=== PATIENT | male | born 1970 | race Two or more races ===

== ENCOUNTER 2016-09-27 20:48 | Emergency (ER) | payer OTHER ==
[~2016-09-27] VITALS: Ht 160 cm; Wt 79.4 kg
[~2016-09-27 20:48] MED LIST: GLYB1.257 PO; METF-312 PO; OMEP20CA5 OR
[2016-09-28 04:12] VITALS: BP 152/99
[2016-09-28] MEDS ORDERED: IBUPROFEN 800 MG TAB PO ONE (04:15)
[2016-09-28] MEDS ORDERED: cefTRIAXone W LIDOCAINE 1 GM IM IM ONE (04:15)
[2016-09-28] MEDS ORDERED: cefTRIAXone SOD 1,000 MG VL ONE (04:49)
== END 2016-09-28 04:51 | disposition home or self-care (01) ==
LOC: ER 20:56
DX: N45.3 Epididymo-orchitis (principal); J45.909 Unspecified asthma, uncomplicated; E11.9 Type 2 diabetes mellitus without complications; E78.5 Hyperlipidemia, unspecified
CPT/HCPCS: 76870; 96372; 99284; J0696

== ENCOUNTER 2016-10-06 13:01 | Emergency (ER) | payer OTHER ==
[~2016-10-06] VITALS: Ht 160 cm; Wt 81.6 kg
[2016-10-06] MEDS ORDERED: HYDROcodone-ACET 10/325MG TAB PO ONE (17:30)
[2016-10-06 18:22] LABS: Basophils # (auto) 0 uL; Basophils % (auto) 0.2 % (0.0-2.0); DEFINITIVE VIEW TRANSMISSION; Eosinophils # (auto) 1.4 uL; Hematocrit 46.8 % (41.0-53.0); Hemoglobin 15.6 g/dL (13.5-17.5); Lymphocytes # (auto) 4.9 uL; Lymphocytes % (auto) 38.1 % (10.0-50.0); Mean Corpuscular Hemoglobin 29.9 pg (28.0-32.0); Mean Corpuscular Hgb Conc. 33.3 g/dL (32.0-36.0); Mean Corpuscular Volume 89.6 fL (80.0-100.0); Mean Platelet Volume 6.5 fL (7.4-10.4); Monocytes # (auto) 0.9 uL; Monocytes % (auto) 6.7 % (0.0-12.0); Neutrophils # (auto) 5.6 uL; Platelet Count (auto) 485 10^3/uL (140-450); Red Cell Distribution Width 12.5 % (11.6-16.0); White Blood Cell 12.8 10^3/uL (4.4-10.8)
[2016-10-06 18:34] LABS: Albumin 3.9 g/dL (3.4-5.0); BUN/Creatinine Ratio 16.9; Bilirubin, Total 0.7 mg/dL (0.2-1.0); Calcium 9.1 mg/dL (8.5-10.1); Potassium 3.9 mmol/L (3.5-5.1); Total Protein 7.2 g/dL (6.4-8.2)
[2016-10-06 18:45] LABS: Urine RBC None Seen /hpf (0 - 3)
[2016-10-06 19:05] LABS: Urine Bilirubin Negative (Negative); Urine Blood Negative /uL (Negative); Urine Color Yellow (Yellow); Urine Ketone Negative (Negative); Urine Mucus FEW (None Seen); Urine Nitrite Negative (Negative); Urine Urobilinogen Normal (Negative); Urine pH 5.5 (5.0-8.0)
[2016-10-06 19:16] LABS: Urine Glucose 1+ mg/dL (Normal)
[2016-10-06 20:26] VITALS: BP 147/96
== END 2016-10-06 20:27 | disposition home or self-care (01) ==
LOC: ER 13:03
DX: N43.3 Hydrocele, unspecified (principal); J45.909 Unspecified asthma, uncomplicated; E11.9 Type 2 diabetes mellitus without complications; E78.5 Hyperlipidemia, unspecified; Z87.11 Personal history of peptic ulcer disease; Z90.89 Acquired absence of other organs
CPT/HCPCS: 36415; 76870; 80053; 81001; 85025; 85049

== ENCOUNTER 2017-07-27 09:36 | Emergency (ER) | payer OTHER, MEDICAID ==
[~2017-07-27] VITALS: Ht 160 cm; Wt 79.4 kg
[~2017-07-27 09:36] MED LIST changes: -METF-312 PO; +METF-370 PO; -OMEP20CA5 OR; +OMEP20CA74 OR
[2017-07-27 09:50] VITALS: BP 151/97
== END 2017-07-27 11:34 | disposition home or self-care (01) ==
LOC: ER 09:36
DX: S09.90XA Unspecified injury of head, initial encounter (principal); J45.909 Unspecified asthma, uncomplicated; E11.9 Type 2 diabetes mellitus without complications; E78.5 Hyperlipidemia, unspecified; I10 Essential (primary) hypertension; G89.29 Other chronic pain; M54.2 Cervicalgia; Z79.899 Other long term (current) drug therapy; Z90.49 Acquired absence of other specified parts of digestive tract; W01.0XXA Fall on same level from slipping, tripping and stumbling without subsequent striking against object, initial encounter; Y93.01 Activity, walking, marching and hiking; Y99.8 Other external cause status; Y92.89 Other specified places as the place of occurrence of the external cause
CPT/HCPCS: 70450

== ENCOUNTER 2017-08-30 13:09 | Emergency (ER) | payer OTHER, MEDICAID ==
[~2017-08-30] VITALS: Ht 162.6 cm; Wt 77.1 kg
[2017-08-30 15:13] VITALS: BP 131/87
== END 2017-08-30 15:42 | disposition home or self-care (01) ==
LOC: ER 13:09
DX: M25.562 Pain in left knee (principal); J45.909 Unspecified asthma, uncomplicated; E11.9 Type 2 diabetes mellitus without complications; E78.5 Hyperlipidemia, unspecified; Z87.11 Personal history of peptic ulcer disease; Z82.49 Family history of ischemic heart disease and other diseases of the circulatory system; Z83.3 Family history of diabetes mellitus

== ENCOUNTER 2018-05-25 16:54 | Emergency (ER) | payer OTHER, MEDICAID ==
[~2018-05-25] VITALS: Ht 160 cm; Wt 79.4 kg
[2018-05-25 17:35] LABS: Basophils # (auto) 0.1 uL; Basophils % (auto) 0.8 % (0.0-2.0); Eosinophils # (auto) 0.1 uL; Eosinophils % (auto) 1.4 % (0.0-7.0); Hemoglobin 15.3 g/dL (13.5-17.5); Lymphocytes # (auto) 3.6 uL; Lymphocytes % (auto) 39.7 % (10.0-50.0); Mean Corpuscular Hemoglobin 31.4 pg (28.0-32.0); Mean Corpuscular Hgb Conc. 34.9 g/dL (32.0-36.0); Monocytes # (auto) 0.7 uL; Monocytes % (auto) 7.5 % (0.0-12.0); Neutrophils # (auto) 4.5 uL; Neutrophils % (auto) 50.6 % (37.0-80.0); Nucleated Red Blood Cells % 0.1 %; Platelet Count (auto) 450 10^3/uL (140-450); Red Blood Cells 4.88 10^6/uL (4.5-5.90); Red Cell Distribution Width 12.6 % (11.8-14.3)
[2018-05-25 17:51] LABS: BUN/Creatinine Ratio 16.8; Calcium 8.9 mg/dL (8.5-10.1); Potassium 4.2 mmol/L (3.5-5.1); Total Protein 7.6 g/dL (6.4-8.2)
[2018-05-25] MEDS ORDERED: SODIUM CHLORIDE 0.9% 1,000 ML IV ONE (20:15)
[2018-05-25] MEDS ORDERED: ONDANSETRON HCL 4 MG/2 ML VIAL IV ONE (20:15)
[2018-05-25] MEDS ORDERED: NALBUPHINE HCL 10 MG/1ml INJECTION IV ONE (20:15)
[2018-05-25 20:54] LABS: Urine Bacteria NONE SEEN /hpf (None Seen); Urine Blood Negative /uL (Negative); Urine Mucus FEW (None Seen); Urine WBC 1 /hpf (0 - 3)
[2018-05-25 21:30] VITALS: BP 133/84
== END 2018-05-25 21:39 | disposition home or self-care (01) ==
LOC: ER 17:01
DX: K29.00 Acute gastritis without bleeding (principal); K76.0 Fatty (change of) liver, not elsewhere classified; J45.909 Unspecified asthma, uncomplicated; E78.5 Hyperlipidemia, unspecified; I10 Essential (primary) hypertension; E11.9 Type 2 diabetes mellitus without complications; Z90.49 Acquired absence of other specified parts of digestive tract
CPT/HCPCS: 36415; 76705; 80053; 81001; 82150; 83690; 85025; 96361; 96374; 96375; 99285; J2300; J2405; J7030

== ENCOUNTER 2018-06-19 18:35 | Emergency (ER) | payer OTHER, MEDICAID ==
[~2018-06-19] VITALS: Ht 160 cm; Wt 78.9 kg
[2018-06-19 19:35] VITALS: BP 143/76
[2018-06-19 20:04] LABS: Basophils # (auto) 0.1 uL; Basophils % (auto) 0.8 % (0.0-2.0); Eosinophils # (auto) 0.8 uL; Eosinophils % (auto) 7.6 % (0.0-7.0); Hematocrit 41.8 % (41.0-53.0); Hemoglobin 14.5 g/dL (13.5-17.5); Lymphocytes # (auto) 3.6 uL; Lymphocytes % (auto) 36.2 % (10.0-50.0); Mean Corpuscular Hemoglobin 31.7 pg (28.0-32.0); Mean Corpuscular Hgb Conc. 34.7 g/dL (32.0-36.0); Mean Corpuscular Volume 91.3 fL (80.0-100.0); Monocytes # (auto) 0.9 uL; Monocytes % (auto) 8.6 % (0.0-12.0); Neutrophils # (auto) 4.7 uL; Neutrophils % (auto) 46.8 % (37.0-80.0); Nucleated Red Blood Cells % 0.1 %; Platelet Count (auto) 466 10^3/uL (140-450); Red Blood Cells 4.58 10^6/uL (4.5-5.90); Red Cell Distribution Width 12.9 % (11.8-14.3)
[2018-06-19 20:16] LABS: INR 0.94 (0.9-1.15); Partial Thromboplastin Time 26.2 sec (23.78-33.04); Prothrombin Time 10.1 sec (9.27-12.13)
[2018-06-19 20:25] LABS: Albumin 3.8 g/dL (3.4-5.0); Calcium 8.4 mg/dL (8.5-10.1); Potassium 3.8 mmol/L (3.5-5.1)
[2018-06-19] MEDS ORDERED: PANTOPRAZOLE 40 MG/10 ML VIAL IV ONE (20:30)
[2018-06-19] MEDS ORDERED: ALUM & MAG HYDROX-SIMETH LIQ(MAALOX) 30 ML PO ONE ×2 (20:30→20:45)
[2018-06-19] MEDS ORDERED: ONDANSETRON HCL 4 MG/2 ML VIAL IV ONE (20:30)
[2018-06-19 20:34] LABS: Bilirubin, Total 0.6 mg/dL (0.2-1.0); Total Protein 7.2 g/dL (6.4-8.2)
[2018-06-19] MEDS ORDERED: DONNATAL 5ml ORAL Elix (BELLADONNA ALK-PHENOBARB) PO ONE (20:45)
[2018-06-19] MEDS ORDERED: LIDOCAINE VISCOUS 2% 15ML UD MT ONE (20:45)
[2018-06-20] MEDS ORDERED: ALBUTEROL SULF 2.5 MG/0.5ML(0.5%) NEB SOLN ONE ×2 (02:04→02:56)
[2018-06-20] MEDS ORDERED: methylPREDNISolone SOD SUCC 125 MG/2 ML VL ONE (02:05)
[2018-06-20] MEDS ORDERED: IPRATROPIUM BROM 0.5 MG/2.5ML INH SOL ONE (02:56)
== END 2018-06-19 20:42 | disposition home or self-care (01) ==
LOC: ER 18:37
DX: K76.0 Fatty (change of) liver, not elsewhere classified (principal); J45.909 Unspecified asthma, uncomplicated; E11.9 Type 2 diabetes mellitus without complications; E78.5 Hyperlipidemia, unspecified; I10 Essential (primary) hypertension; Z90.49 Acquired absence of other specified parts of digestive tract
CPT/HCPCS: 36415; 74176; 80053; 82150; 82962; 83690; 85025; 85610; 85730; 96374; 96375; 99285; C9113; J2405

== ENCOUNTER 2019-01-26 14:47 | Emergency (ER) | payer OTHER, MEDICAID ==
[~2019-01-26] VITALS: Ht 160 cm; Wt 77.1 kg
[2019-01-26 15:47] LABS: Basophils # (auto) 0.1 uL; Basophils % (auto) 0.7 % (0.0-2.0); Eosinophils # (auto) 0.2 uL; Hemoglobin 14.7 g/dL (13.5-17.5); Monocytes # (auto) 0.7 uL; Neutrophils # (auto) 4.6 uL; Red Blood Cells 4.74 10^6/uL (4.5-5.90); White Blood Cell 8.1 10^3/uL (4.4-10.8)
[2019-01-26 15:49] LABS: Eosinophils % (auto) 2.9 % (0.0-7.0); Hematocrit 42.6 % (41.0-53.0); Lymphocytes # (auto) 2.4 uL; Lymphocytes % (auto) 30.1 % (10.0-50.0); Mean Corpuscular Hgb Conc. 34.5 g/dL (32.0-36.0); Mean Corpuscular Volume 89.9 fL (80.0-100.0); Monocytes % (auto) 8.8 % (0.0-12.0); Neutrophils % (auto) 57.5 % (37.0-80.0); Platelet Count (auto) 458 10^3/uL (140-450); Red Cell Distribution Width 12.4 % (11.8-14.3)
[2019-01-26 15:59] LABS: Albumin 3.9 g/dL (3.4-5.0); Anion Gap 4 (5-15); Blood Urea Nitrogen 18 mg/dL (7-18); Calcium 9.4 mg/dL (8.5-10.1); Carbon Dioxide 29 mmol/L (21-32); Chloride 106 mmol/L (98-107); Glucose 292 mg/dL (74-106); Potassium 4.9 mmol/L (3.5-5.1); Sodium 139 mmol/L (136-145)
[2019-01-26 16:05] LABS: Alanine Aminotransferase 52 U/L (16-61); Alkaline Phosphatase 45 U/L (45-117); Aspartate Aminotransferase 26 U/L (15-37); BUN/Creatinine Ratio 14.1; Bilirubin, Total 0.7 mg/dL (0.2-1.0); GFR African American 78 mL/min; GFR Non-African American 64 mL/min; Total Protein 7.1 g/dL (6.4-8.2)
[2019-01-26 16:21] LABS: Urine Bacteria NONE SEEN /hpf (None Seen); Urine Blood Negative /uL (Negative); Urine Specific Gravity 1.034 (1.001-1.035); Urine WBC 1 /hpf (0 - 3)
[2019-01-26] MEDS ORDERED: IOHEXOL 300 MG/ML 100ML BOTTLE IJ ONE (23:45)
[2019-01-26] MEDS ORDERED: SODIUM CHLORIDE 0.9% 1,000 ML IV ONE (23:45)
[2019-01-27 01:00] VITALS: BP 128/91
== END 2019-01-27 01:51 | disposition home or self-care (01) ==
LOC: ER 14:47
DX: K31.84 Gastroparesis (principal); K76.0 Fatty (change of) liver, not elsewhere classified; J45.909 Unspecified asthma, uncomplicated; E11.9 Type 2 diabetes mellitus without complications; E78.5 Hyperlipidemia, unspecified; I10 Essential (primary) hypertension; Z87.11 Personal history of peptic ulcer disease
CPT/HCPCS: 36415; 71046; 74177; 80053; 81001; 84484; 85025; 99284; J7030; Q9967

== ENCOUNTER 2021-10-13 19:00 | Emergency (ER) | payer MEDICAID, OTHER ==
[~2021-10-13] VITALS: Ht 157.5 cm; Wt 74.8 kg
[~2021-10-13 19:00] MED LIST changes: +GLIP10TA9 PO; -GLYB1.257 PO; +LEVO500T31 PO; -METF-370 PO; +METR500T PO
[2021-10-13 20:10] LABS: Basophils # (auto) 0.1 10 ^3/uL (0-0.2); Basophils % (auto) 1.2 % (0.0-2.0); Eosinophils # (auto) 0.5 10 ^3/uL (0-0.8); Eosinophils % (auto) 8.8 % (0.0-7.0); Hematocrit 39.1 % (41.0-53.0); Hemoglobin 13.2 g/dL (13.5-17.5); Lymphocytes # (auto) 2.5 10 ^3/uL (0.4-5.4); Lymphocytes % (auto) 41.7 % (10.0-50.0); Mean Corpuscular Hgb Conc. 33.7 g/dL (32.0-36.0); Monocytes # (auto) 0.7 10 ^3/uL (0-1.3); Monocytes % (auto) 12.1 % (0.0-12.0); Neutrophils # (auto) 2.2 10 ^3/uL (1.6-8.6); Neutrophils % (auto) 36.2 % (37.0-80.0); Nucleated Red Blood Cells % 0.1 %; Red Cell Distribution Width 13.1 % (11.8-14.3)
[2021-10-13 20:23] LABS: Albumin 3.4 g/dL (3.4-5.0); BUN/Creatinine Ratio 9.8; Calcium 8.5 mg/dL (8.5-10.1); Potassium 3.9 mmol/L (3.5-5.1)
[2021-10-13 20:26] LABS: Bilirubin, Total 0.3 mg/dL (0.2-1.0); Total Protein 6.7 g/dL (6.4-8.2)
[2021-10-13 23:33] VITALS: BP 140/90
[2021-10-13] MEDS ORDERED: DICY10CA PO (23:54)
[2021-10-14] MEDS ORDERED: DICYCLOMINE HCL (10MG/ML) 2 ML AMPULE IM ONE
== END 2021-10-14 00:03 | disposition home or self-care (01) ==
LOC: ER 19:00
DX: R10.11 Right upper quadrant pain (principal); R11.2 Nausea with vomiting, unspecified
CPT/HCPCS: 36415; 80053; 85025

== ENCOUNTER 2022-01-20 12:42 | Emergency (ER) | payer MEDICAID ==
[~2022-01-20 12:42] MED LIST changes: +DICY10CA PO
[2022-01-20] MEDS ORDERED: ONDANSETRON ODT 4 MG TAB PO ONE (16:00)
[2022-01-20] MEDS ORDERED: MORPHINE SULFATE INJECTION 2 MG/ML SYRG IM ONE (16:00)
[2022-01-20 16:24] VITALS: BP 142/95
== END 2022-01-20 16:51 | disposition home or self-care (01) ==
LOC: ER 12:42
DX: S46.911A Strain of unspecified muscle, fascia and tendon at shoulder and upper arm level, right arm, initial encounter (principal); J45.909 Unspecified asthma, uncomplicated; E11.9 Type 2 diabetes mellitus without complications; X58.XXXA Exposure to other specified factors, initial encounter; Y93.89 Activity, other specified; Y92.89 Other specified places as the place of occurrence of the external cause; Y99.8 Other external cause status
CPT/HCPCS: 73030; 96372; 99283; J2270; Q0162

== ENCOUNTER 2022-02-23 17:57 | Emergency (ER) | payer MEDICAID ==
[~2022-02-23] VITALS: Ht 160 cm; Wt 72.6 kg
[2022-02-23] MEDS ORDERED: cefTRIAXone W LIDOCAINE 1 GM IM IM ONE (18:15)
[2022-02-23] MEDS ORDERED: LEVO-28 PO (18:15)
[2022-02-23 18:49] LABS: Eosinophils % (auto) 0.3 % (0.0-7.0); Lymphocytes # (auto) 2.2 10 ^3/uL (0.4-5.4); White Blood Cell 14.8 10^3/uL (4.4-10.8)
[2022-02-23 18:51] LABS: Basophils # (auto) 0 10 ^3/uL (0-0.2); Basophils % (auto) 0.3 % (0.0-2.0); Eosinophils # (auto) 0.1 10 ^3/uL (0-0.8); Hematocrit 38.6 % (41.0-53.0); Hemoglobin 13.5 g/dL (13.5-17.5); Lymphocytes % (auto) 14.7 % (10.0-50.0); Mean Corpuscular Hemoglobin 30.8 pg (28.0-32.0); Mean Corpuscular Hgb Conc. 35.1 g/dL (32.0-36.0); Mean Corpuscular Volume 87.8 fL (80.0-100.0); Monocytes # (auto) 1.1 10 ^3/uL (0-1.3); Monocytes % (auto) 7.7 % (0.0-12.0); Neutrophils # (auto) 11.4 10 ^3/uL (1.6-8.6); Red Blood Cells 4.39 10^6/uL (4.5-5.90); Red Cell Distribution Width 12.7 % (11.8-14.3)
[2022-02-23 19:04] LABS: Albumin 3.7 g/dL (3.4-5.0); BUN/Creatinine Ratio 10.5; Potassium 3.8 mmol/L (3.5-5.1)
[2022-02-23 19:07] LABS: Bilirubin, Total 0.7 mg/dL (0.2-1.0); Total Protein 7.7 g/dL (6.4-8.2)
[2022-02-23] MEDS ORDERED: cefTRIAXone SOD 1,000 MG VL IM ONE (19:45)
[2022-02-23 21:05] VITALS: BP 134/89
== END 2022-02-23 21:06 | disposition home or self-care (01) ==
LOC: ER 17:57
DX: I16.0 Hypertensive urgency (principal); J06.9 Acute upper respiratory infection, unspecified; E11.9 Type 2 diabetes mellitus without complications; J45.909 Unspecified asthma, uncomplicated; Z90.49 Acquired absence of other specified parts of digestive tract
CPT/HCPCS: 36415; 71045; 80053; 84484; 85025; 85379; 93005; 96372; 99285; J0696

== ENCOUNTER 2022-04-01 16:43 | Emergency (ER) | payer MEDICAID ==
[~2022-04-01] VITALS: Ht 175.3 cm; Wt 88.0 kg
[~2022-04-01 16:43] MED LIST changes: +LEVO-28 PO
[2022-04-01 16:55] VITALS: BP 137/84
[2022-04-01] MEDS ORDERED: SODIUM CHLORIDE 0.9% 1,000 ML IVB ONE (17:15)
== END 2022-04-01 17:52 | disposition left against medical advice (07) ==
LOC: ER 16:43 → EDBD 16:43 → ER 17:52
DX: R55 Syncope and collapse (principal); I10 Essential (primary) hypertension; E11.9 Type 2 diabetes mellitus without complications; J45.909 Unspecified asthma, uncomplicated; Z90.49 Acquired absence of other specified parts of digestive tract; Z79.2 Long term (current) use of antibiotics; Z79.899 Other long term (current) drug therapy
CPT/HCPCS: 93005

== ENCOUNTER 2023-05-19 15:19 | Emergency (ER) | payer MEDICAID ==
[~2023-05-19] VITALS: Ht 157.5 cm; Wt 78.9 kg
[2023-05-19 15:19] VITALS: BP 133/91; PULSE 90; RESP 18; O2SAT 97
[~2023-05-19 15:19] MED LIST changes: -LEVO-28 PO; +LEVO500T91 PO
[2023-05-19] MEDS ORDERED: NEOM0.1O7 OP (18:00)
== END 2023-05-19 18:54 | disposition home or self-care (01) ==
LOC: ER 15:19
DX: H10.11 Acute atopic conjunctivitis, right eye (principal); J45.909 Unspecified asthma, uncomplicated; E11.9 Type 2 diabetes mellitus without complications; I10 Essential (primary) hypertension

== ENCOUNTER 2023-12-21 19:53 | Emergency (ER) | payer MEDICAID ==
[~2023-12-21] VITALS: Ht 157.5 cm; Wt 72.0 kg
[~2023-12-21 19:53] MED LIST changes: +NEOM0.1O7 OP
[2023-12-21] MEDS ORDERED: ALBUTEROL SULF 2.5 MG/0.5ML(0.5%) NEB SOLN ONE (20:27)
[2023-12-21] MEDS ORDERED: IPRATROPIUM BROM 0.5 MG/2.5ML INH SOL ONE (20:28)
[2023-12-21] MEDS: ALBUTEROL SULF 2.5 MG/0.5ML(0.5%) NEB SOLN NEB ONE (20:37)
[2023-12-21] MEDS: IPRATROPIUM BROM 0.5 MG/2.5ML INH SOL NEB ONE (20:37)
[2023-12-21 22:31] VITALS: BP 164/97; PULSE 109; RESP 18; TEMP 98; O2SAT 99
[2023-12-21] MEDS ORDERED: PRED20TA2 PO (22:38)
[2023-12-21] MEDS ORDERED: DexAMETHasone SOD PHOS 10MG/1ML VIAL INJ ONE (22:38)
[2023-12-21] MEDS: DexAMETHasone SOD PHOS 10MG/1ML VIAL INJ IV ONE (22:40)
== END 2023-12-21 22:44 | disposition home or self-care (01) ==
LOC: ER 19:53
DX: J45.909 Unspecified asthma, uncomplicated (principal)
CPT/HCPCS: 71045; 94640; 96374; 99283; J1100; J7644

== ENCOUNTER 2024-05-23 08:34 | Emergency (ER) | payer MEDICAID ==
[~2024-05-23] VITALS: Ht 157.5 cm; Wt 74.7 kg
[~2024-05-23 08:34] MED LIST changes: +ALBUAER3 IN; +NIRM1TAB7 PO; +PRED20TA2 PO
[2024-05-23 09:02] VITALS: BP 142/81; PULSE 82; RESP 16; TEMP 98.1; O2SAT 100
[2024-05-23] MEDS ORDERED: VALA1TAB PO (09:28)
[2024-05-23] MEDS ORDERED: ACYC5CRE4 TOP (09:29)
== END 2024-05-23 09:36 | disposition home or self-care (01) ==
LOC: ER 08:34
DX: B00.89 Other herpesviral infection (principal); E11.9 Type 2 diabetes mellitus without complications; J45.909 Unspecified asthma, uncomplicated; I10 Essential (primary) hypertension

== ENCOUNTER 2025-04-08 19:56 | Emergency (ER) | payer MEDICAID ==
[~2025-04-08] VITALS: Ht 157.5 cm; Wt 71.0 kg
[~2025-04-08 19:56] MED LIST changes: +ACYC5CRE4 TOP; +VALA1TAB PO
[2025-04-08 20:42] LABS: Hemoglobin 14.2 g/dL (13.5-17.5); Mean Corpuscular Volume 84.6 fL (80.0-100.0)
[2025-04-08 20:43] LABS: Hematocrit 43.3 % (41.0-53.0); Mean Corpuscular Hemoglobin 27.7 pg (28.0-32.0); Nucleated Red Blood Cells % 0.1 %
[2025-04-08 20:46] LABS: Urine Protein, UAD Negative (Negative)
[2025-04-08 20:48] LABS: Potassium 4.0 mmol/L (3.5-5.1); Sodium 141 mmol/L (136-145)
[2025-04-08 20:49] LABS: Anion Gap 11 (5-15); Carbon Dioxide 21 mmol/L (20-31)
[2025-04-08 20:50] LABS: Calcium 8.7 mg/dL (8.7-10.4)
[2025-04-08 20:54] LABS: BUN/Creatinine Ratio 14.1 (10.0-20.0); Blood Urea Nitrogen 22 mg/dL (9-23)
[2025-04-08 21:00] LABS: Chloride 109 mmol/L (98-107); Glucose 253 mg/dL (74-106); Lipase 152 U/L (12-53)
[2025-04-08] MEDS: ONDANSETRON ODT 4 MG TAB PO ONE (21:19)
[2025-04-08 21:20] VITALS: O2SAT 97
[2025-04-08] MEDS: HYDROmorphone HCL 2 MG/ML VL/or syr IM ONE (21:20)
--- NOTE | 2025-04-08 21:23 | ED.PDOC ---
GI ASSESSMENT HPI Comments A 55 year-old male presents to the ED with a chief complaint of R sided abdominal pain as of X2 days ago. Patient ambulates with a cane from [facility] on February 03. Patient has no further symptoms at this time and otherwise denies further associated symptoms of N/V/D, fever, chills, migraine, chest pain, or bloody stool. Patient denies any history of gallstones or liver concerns. Patient was tachycardic at arrival. Chief Complaint: Rib Pain Time Seen by MD: 21:17 Primary Care Provider: SONALI. Reviewed Notes: Nurses Notes, Medications, Allergies Allergies: Coded Allergies: NO KNOWN ALLERGIES (Unverified , 11/28/12) Home Meds Active Scripts Acyclovir Topical (Zovirax) 5 % Cre, 1 APPLIC TOP BID for 10 Days, #5 GRAMS 0 Refills Prov:LUIS SHEIKH NP 05/23/24 Valacyclovir Hcl (Valtrex) 1 Gm Tab, 1 TAB PO BID for 10 Days, #20 TAB 0 Refills Prov:LUIS SHEIKH NP 05/23/24 Albuterol Sulfate (VENTOLIN ARIANA) 90 Mcg Ih, 2 PUFF IN Q4HPRN, #1 INH 0 Refills Prov:VIOLET MENDOZA 05/02/24 Prednisone (Prednisone) 20 Mg Tab, 20 MG PO BID for 5 Days, #10 TAB 0 Refills Prov:VIOLET MENDOZA 05/02/24 Nirmatrelvir/Ritonavir (PAXLOVID 10 x 150 MG & 10 x 100MG) 1 Tab Tab, 1 TAB PO BID for 5 Days, #10 TAB 0 Refills Prov:VIOLET MENDOZA 05/02/24 Prednisone (Prednisone) 20 Mg Tab, 40 MG PO DAILY for 5 Days, #10 MG Prov:JUDIT AVILES 12/21/23 Gqwhiweu-Wolckn-Zehsxjnp (Maxitrol) 0.1 % Oin, 1 APPLIC OP TID, #3 G Prov:JUDIT AVILES 05/19/23 Levofloxacin Hemihydrate (LEVOFLOXACIN) 500 Mg Tab, 500 MG PO DAILY for 7 Days, #7 MG Prov:TODD HAIR MD 02/23/22 Dicyclomine Hcl (BENTYL CAPSULE) 10 Mg Cp, 2 CAP PO Q6HPRN PRN, #30 CAP 3 Refills Prov:JAMSHID GONZALEZ Giselle DO 10/13/21 Levofloxacin (Levaquin) 500 Mg Tab, 500 MG PO DAILY, #7 TAB Prov:MIRIAM YOUNG MD 10/22/19 Metronidazole (Flagyl) 500 Mg Tab, 500 MG PO Q8HR, #21 TAB Prov:MIRIAM YOUNG MD 10/22/19 Reported Medications Glipizide (Glipizide) 10 Mg Tab, 10 MG PO BID for 30 Days, MG 10/08/19 Omeprazole (PRILOSEC) 20 Mg Cap, MG OR, CAP 08/15/13 Information Source: Patient Mode of Arrival: Ambulatory Timing: Days Duration: Since onset Prehospital treatment: None Quality: Aching, Cramping Vomitus: None Severity: Moderate Recent: None Pain Location: RUQ, RLQ Associated sign and symptoms: Abdominal Pain Past Medical History PAST MEDICAL HISTORY: Asthma, DM, HTN, PUD Surgical History: Appendectomy Family History Family History: Unknown Social History Smoker: Non-Smoker Alcohol: Occasionally Drugs: Denies Drug Use Lives In: Home Constitutional: denies: chills, diaphoresis, fatigue, fever, malaise, sweats, weakness, others EENTM: denies: blurred vision, double vision, ear bleeding, ear discharge, ear drainage, ear pain, ear ringing, eye pain, eye redness, hearing loss, mouth pain, mouth swelling, nasal discharge, nose bleeding, nose congestion, nose pain, photophobia, tearing, throat pain, throat swelling, voice changes, others Respiratory: denies: cough, hemoptysis, orthopnea, SOB at rest, shortness of breath, SOB with excertion, stridor, wheezing, others Cardiovascular: denies: chest pain, dizzy spells, diaphoresis, Dyspnea on exertion, edema, irregular heart beat, left arm pain, lightheadedness, palpitations, PND, syncope, others Gastrointestinal: reports: abdominal pain; denies: abdomen distended, blood streaked bowels, constipated, diarrhea, dysphagia, difficulty swallowing, hematemesis, melena, nausea, poor appetite, poor fluid intake, rectal bleeding, rectal pain, vomiting, others Genitourinary: denies: burning, dysuria, flank pain, frequency, hematuria, incontinence, penile discharge, penile sore, pain, testicle pain, testicle swelling, urgency, others Neurological: denies: dizziness, fainting, headache, left sided numbness, left sided weakness, numbness, paresthesia, pre-existing deficit, right sided numbness, right sided weakness, seizure, speech problems, tingling, tremors, weakness, others Musculoskeletal: denies: back pain, gout, joint pain, joint swelling, muscle pain, muscle stiffness, neck pain, others Integumetry: denies: bruises, change in color, change in hair/nails, dryness, laceration, lesions, lumps, rash, wounds, others Allergic/Immunocompromised: denies: Difficulty Healing, Frequent Infections, Hives, Itching, others Hematologic/Lymphatic: denies: anemia, blood clots, easy bleeding, easy bruising, swollen glands, others Endocrine: denies: excessive hunger, excessive sweating, excessive thirst, excessive urination, flushing, intolerance to cold, intolerance to heat, unexplained weight gain, unexplained weight loss, others Psychiatric: denies: anxiety, bipolar disorder, depression, hopeless, panic disorder, schizophrenia, sleepless, suicidal, others All Other Systems: Reviewed and Negative Physical Exam General Appearance: Moderate Distress (Moderate distress due to right upper quadrant pain.), Normal HEENT: Normal ENT Inspection, Pharynx Normal, TMs Normal Neck: Full Range of Motion, Non-Tender, Normal, Normal Inspection Respiratory: Chest Non-Tender, Lungs Clear, No Accessory Muscle Use, No Respiratory Distress, Normal Breath Sounds Cardiovascular: No Edema, No JVD, No Murmur, No Gallop, Normal Peripheral Pulses, Regular Rate/Rhythm Breast Exam: Deferred Gastrointestinal: Other (Diffuse right upper quadrant tenderness to palpation extending towards the epigastric region. No signs of trauma. Abdomen was mildly rigid.) Genitalia: Deferred Pelvic: Deferred Rectal: Deferred Extremities: Normal capillary refill, No pedal edema, Other (Patient ambulates with a cane.) Neurologic: Alert, No Motor Deficits, Normal Affect, Normal Mood, No Sensory Deficits Cerebellar Function: NOT DONE Reflexes: NOT DONE Skin: Dry, Normal Color, Warm Lymphatic: No Adenopathy Was a procedure done? Was a procedure done?: No GI differential Dx Differential Diagnosis: Constipation, Pancreatitis, UTI, Dehydration, Food Poisoning, Bacterial, Parasitic, Viral X-Ray, Labs, Meds, VS Vital Signs Date Time Temp Pulse Resp B/P (MAP) Pulse Ox O2 Delivery O2 Flow Rate FiO2 04/08/25 22:35 99.2 04/08/25 21:54 104 17 116/79 04/08/25 21:36 100.0 04/08/25 21:20 108 18 106/79 04/08/25 21:20 100.0 108 18 106/79 (88) 97 100.0 04/08/25 21:20 108 18 97 Room Air 04/08/25 20:14 98 Room Air 0 04/08/25 20:14 98.2 110 12 130/87 (101) 98 98.2 Lab Test 04/08/25 20:37 04/08/25 20:33 Range/Units Urine Color Light-yellow Yellow Urine Clarity Clear Clear Urine pH 5.0 5.0-9.0 Urine Specific [place] 1.038 H 1.001-1.035 Urine Protein Negative Negative Urine Ketones Negative Negative Urine Blood Negative Negative /uL Urine Nitrite Negative Negative Urine Bilirubin Negative Negative Urine Urobilinogen Normal Negative mg/dL Urine Leukocyte Esterase Negative Negative /uL Urine RBC <1 0 - 3 /hpf Urine Microscopic WBC < 1 0-3 /HPF Urine Squamous Epithelial Cells None seen <5 /hpf Urine Bacteria None seen None Seen /hpf Urine Glucose 4+ H Normal mg/dL White Blood Count 15.1 H 4.4-10.8 10^3/uL Red Blood Count 5.12 4.5-5.90 10^6/uL Hemoglobin 14.2 13.5-17.5 g/dL Hematocrit 43.3 41.0-53.0 % Mean Corpuscular Volume 84.6 80.0-100.0 fL Mean Corpuscular Hemoglobin 27.7 L 28.0-32.0 pg Mean Corpuscular Hemoglobin Concent 32.8 32.0-36.0 g/dL Red Cell Distribution Width 14.9 H 11.8-14.3 % Platelet Count 524 H 140-450 10^3/uL Mean Platelet Volume 6.2 L 6.9-10.8 fL Neutrophils (%) (Auto) 80.8 H 37.0-80.0 % Lymphocytes (%) (Auto) 11.6 10.0-50.0 % Monocytes (%) (Auto) 5.6 0.0-12.0 % Eosinophils (%) (Auto) 1.6 0.0-7.0 % Basophils (%) (Auto) 0.4 0.0-2.0 % Neutrophils # (Auto) 12.2 H 1.6-8.6 10 ^3/uL Lymphocytes # (Auto) 1.8 0.4-5.4 10 ^3/uL Monocytes # (Auto) 0.8 0-1.3 10 ^3/uL Eosinophils # (Auto) 0.2 0-0.8 10 ^3/uL Basophils # (Auto) 0.1 0-0.2 10 ^3/uL Nucleated Red Blood Cells 0.1 % Sodium Level 141 136-145 mmol/L Potassium Level 4.0 3.5-5.1 mmol/L Chloride Level 109 H 98-107 mmol/L Carbon Dioxide Level 21 20-31 mmol/L Anion Gap 11 5-15 Blood Urea Nitrogen 22 9-23 mg/dL Creatinine 1.56 H 0.700-1.30 mg/dL Glomerular Filtration Rate Calc 53 >90 mL/min BUN/Creatinine Ratio 14.1 10.0-20.0 Serum Glucose 253 H 74-106 mg/dL Calcium Level 8.7 8.7-10.4 mg/dL Lipase 152 H 12-53 U/L Current Medications Medications (Trade) Dose Ordered Sig/Danuta Route Start Time Stop Time Status Last Admin Hydromorphone HCl (Dilaudid Injection) 0.5 mg ONCE ONCE IM 04/08/25 20:15 04/08/25 20:16 DC 04/08/25 21:20 Ondansetron HCl (Zofran Po) 4 mg ONCE ONCE PO 04/08/25 20:15 04/08/25 20:16 DC 04/08/25 21:19 Acetaminophen (Tylenol Tablet) 650 mg ONCE ONCE PO 04/08/25 21:30 04/08/25 21:31 DC 04/08/25 21:36 X-Ray, Labs, Meds, VS Comment All studies performed the ED were evaluated by me personally. Serum and urinalysis was relatively unremarkable other than a elevated lipase indicative of a pancreatitis. CT of the abdomen was unremarkable for any definitive pancreatitis event. Patient will be sent home with pain medication and advisement to utilize good hydration and light nutrition including clear broth for the next few days to aid in resolution of his pancreatitis event. Time of 1ST Reevaluation: 22:49 Reevaluation 1ST: Improved Consultation: PCP Patient Education/Counseling: Diagnosis, Treatment Family Education/Counseling: Diagnosis, Treatment, No Family Present SEPSIS Sepsis Screen Date sepsis recognized/suspect: Apr 08, 2025 Time Sepsis recognized/suspect: 2004 Recent Procedure: No On Antibiotic Therapy: No Respiratory Rate >20: No Heart Rate >90: Yes Temp<36 C (96.8 F) or >38.3 C: No SBP <90 or MAP <65 mmHG: No New Acute Mental Status Change: No Is the patient on CPAP, BIPAP,: No Physician Orders Ct Ab Pel Wo Con-No Oral Or Iv (04/08/25 20:11) Vital Signs Date Time Temp Pulse Resp B/P (MAP) Pulse Ox O2 Delivery O2 Flow Rate FiO2 04/08/25 22:35 99.2 04/08/25 21:54 104 17 116/79 04/08/25 21:36 100.0 04/08/25 21:20 108 18 106/79 04/08/25 21:20 100.0 108 18 106/79 (88) 97 100.0 04/08/25 21:20 108 18 97 Room Air 04/08/25 20:14 98 Room Air 0 04/08/25 20:14 98.2 110 12 130/87 (101) 98 98.2 Laboratory Tests Test 04/08/25 20:33 White Blood Count 15.1 10^3/uL (4.4-10.8) H Medications Medications Dose Ordered Sig/Danuta Route Start Time Stop Time Status Last Admin Dose Admin Acetaminophen 650 mg ONCE ONCE PO 04/08/25 21:30 04/08/25 21:31 DC 04/08/25 21:36 Hydromorphone HCl 0.5 mg ONCE ONCE IM 04/08/25 20:15 04/08/25 20:16 DC 04/08/25 21:20 Ondansetron HCl 4 mg ONCE ONCE PO 04/08/25 20:15 04/08/25 20:16 DC 04/08/25 21:19 Departure 1 Departure Time of Disposition: 22:49 Impression: Primary Impression: Acute pancreatitis Disposition: 01 HOME / SELF CARE / HOMELESS Condition: Stable Additional Instructions: Advised patient utilize pain medication as needed as well as very light nutrition for the next few days including clear broth and mild bread. Patient should practice consistent hydration for the next few days as well. e-Prescriptions Ondansetron Odt 4MG Tab (ZOFRAN PO) 4 Mg Tb 4 MG PO Q6HP PRN, #20 TAB ODT TAB-DISSOLVE IN MOUTH, THEN SWALLOW Prov: ANGEL NARANJO PAC 04/08/25 Hydrocodone-Acetaminophen (Hydrocodone Bitartrate/AC 5-325 mg) 1 Tab Tab 1 TAB PO Q6HP PRN, #20 TAB Prov: ANGEL NARANJO PAC 04/08/25 Discharged With: Self, Spouse Critical Care Note Critical Care Time?: No Stability Stability form required: No Heart Score Heart Score: Heart Score Response (Comments) Value History N/A 0 EKG N/A 0 Age N/A 0 Risk Factors N/A 0 Troponin N/A 0 Total 0 I personally scribed for ANGEL NARANJO PAC ([email or web address]) on 04/08/25 at 21:23. Electr onically submitted by Andreia Ramos ([facility]). ANGEL NARANJO PAC Apr 08, 2025 21:23
[2025-04-08] MEDS: ACETAMINOPHEN 325 MG TAB PO ONE (21:36)
[2025-04-08 21:54] VITALS: BP 116/79; PULSE 104; RESP 17
--- NOTE | 2025-04-08 22:22 | DVH ---
Exam: CT CT AB PEL WO CON-NO ORAL OR IV History: Right upper quadrant pain Comparison Study: CT ABD PELVIS WO CONTRAST on DOS: 10/21/19 Technique: Multidetector spiral CT of the abdomen was performed from lung bases to pubic symphysis. Imaging was performed without IV contrast. Axial, coronal and sagittal multiplanar reformats were ob tained from the axial data set by the technologist. Radiation Dose : 1. Abdomen/Pelvis: CTDIvol 9.2 mGy, DLP 570 mGy*cm. Findings: Evaluation of solid organs is limited due to lack of intravenous contrast use. Lung Bases: No acute or significant lung base finding. Normal heart size. No pleural or pericardial effusion. Liver: The liver is normal in size. No focal lesions. Gallbladder and Biliary Tree: Unremarkable Spleen: Unremarkable Pancreas: The pancreas is grossly normal in appearance. Adrenal Glands: Unremarkable Kidneys: Kidneys are grossly normal without calculi or hydronephrosis. Bladder: Grossly unremarkable for degree of distention. Bowel: The stomach is grossly normal in appearance. Small bowel and colon are normal in caliber and d istribution. The appendix is not visualized; however, no secondary findings of acute appendicitis id entified. Ascites: Absent Lymphadenopathy: No mesenteric, retroperitoneal or periportal lymphadenopathy. Abdominal Wall and Mesentery: Trace fat containing umbilical hernia. Vasculature: The visualized abdominal aorta is normal in size and caliber. Evaluation of abdominal a nd pelvic vessels is limited due to lack of intravenous contrast. Pelvic Organs: Unremarkable Musculoskeletal: No aggressive focal bony lesions, acute fractures or dislocation. IMPRESSION: 1. No acute abdominal or pelvic findings. Radiation optimization: All CT scans at this facility use at least one of these dose optimization latonya hniques: automated exposure control mA and/or kV adjustment per patient size (includes targeted exam s where dose is matched to clinical indication) or iterative reconstruction.
[2025-04-08 22:35] VITALS: TEMP 99.2
[2025-04-08] MEDS ORDERED: HYDR-4902 PO (22:51)
[2025-04-08] MEDS ORDERED: ZOFR4T PO (22:51)
== END 2025-04-08 23:00 | disposition home or self-care (01) ==
LOC: ER 19:56
DX: K85.90 Acute pancreatitis without necrosis or infection, unspecified (principal); I10 Essential (primary) hypertension; E11.9 Type 2 diabetes mellitus without complications; J45.909 Unspecified asthma, uncomplicated; Z79.84 Long term (current) use of oral hypoglycemic drugs; Z87.11 Personal history of peptic ulcer disease; Z90.49 Acquired absence of other specified parts of digestive tract
CPT/HCPCS: 36415; 74176; 80048; 81001; 83690; 85025; 96372; 99285; J1171; J7050; Q0162

== ENCOUNTER 2025-07-20 19:36 | Emergency (ER) | payer MEDICAID ==
[~2025-07-20] VITALS: Ht 165.1 cm; Wt 74.5 kg
[~2025-07-20 19:36] MED LIST changes: +HYDR-4902 PO; +ZOFR4T PO
--- NOTE | 2025-07-20 20:09 | ED.PDOC ---
Back pain HPI HPI Comments Pt presents with cc of injury to his right lower leg x yesterday after a a car hub fell on his right foot/ankle. Pt reports his pain currently at a 10/10. Pt has bruising and swelling noted to right inner ankle. Denies numbness or weakness or any other concerns. Chief Complaint: Lower Extremity Time Seen by MD: 19:43 Primary Care Provider: SONALI. Reviewed Notes: Nurses Notes, Medications, Allergies Allergies: Coded Allergies: NO KNOWN ALLERGIES (Unverified , 11/28/12) Home Meds Active Scripts Ondansetron Odt 4MG Tab (ZOFRAN PO) 4 Mg Tb, 4 MG PO Q6HP PRN, #20 TAB ODT TAB-DISSOLVE IN MOUTH, THEN SWALLOW Prov:ANGEL NARANJO PAC 04/08/25 Hydrocodone-Acetaminophen (Hydrocodone Bitartrate/AC 5-325 mg) 1 Tab Tab, 1 TAB PO Q6HP PRN, #20 TAB Prov:ANGEL NARANJO PAC 04/08/25 Acyclovir Topical (Zovirax) 5 % Cre, 1 APPLIC TOP BID for 10 Days, #5 GRAMS 0 Refills Prov:LUIS SHEIKH STRIKER OFF 05/23/24 Valacyclovir Hcl (Valtrex) 1 Gm Tab, 1 TAB PO BID for 10 Days, #20 TAB 0 Refills Prov:LUIS SHEIKH STRIKER OFF 05/23/24 Albuterol Sulfate (VENTOLIN MDI) 90 Mcg Ih, 2 PUFF IN Q4HPRN, #1 INH 0 Refills Prov:VIOLET MENDOZA 05/02/24 Prednisone (Prednisone) 20 Mg Tab, 20 MG PO BID for 5 Days, #10 TAB 0 Refills Prov:VIOLET MENDOZA 05/02/24 Nirmatrelvir/Ritonavir (PAXLOVID 10 x 150 MG & 10 x 100MG) 1 Tab Tab, 1 TAB PO BID for 5 Days, #10 TAB 0 Refills Prov:VIOLET MENDOZA 05/02/24 Prednisone (Prednisone) 20 Mg Tab, 40 MG PO DAILY for 5 Days, #10 MG Prov:JUDIT AVILES 12/21/23 Cyfyntbb-Jmcrky-Fdendujx (Maxitrol) 0.1 % Oin, 1 APPLIC OP TID, #3 G Prov:JUDIT AVILESP 05/19/23 Levofloxacin Hemihydrate (LEVOFLOXACIN) 500 Mg Tab, 500 MG PO DAILY for 7 Days, #7 MG Prov:TODD HAIR MD 02/23/22 Dicyclomine Hcl (BENTYL CAPSULE) 10 Mg Cp, 2 CAP PO Q6HPRN PRN, #30 CAP 3 Refills Prov:JAMSHID GONZALEZ DO 10/13/21 Levofloxacin (Levaquin) 500 Mg Tab, 500 MG PO DAILY, #7 TAB Prov:MIRIAM YOUNG MD 10/22/19 Metronidazole (Flagyl) 500 Mg Tab, 500 MG PO Q8HR, #21 TAB Prov:MIRIAM YOUNG MD 10/22/19 Reported Medications Glipizide (Glipizide) 10 Mg Tab, 10 MG PO BID for 30 Days, MG 10/08/19 Omeprazole (PRILOSEC) 20 Mg Cap, MG OR, CAP 08/15/13 Information Source: Patient Mode of Arrival: Ambulatory Past Medical History PAST MEDICAL HISTORY: Asthma, DM, HTN, PUD Surgical History: Appendectomy Family History Family History: Unknown Social History Smoker: Non-Smoker Alcohol: Occasionally Drugs: Denies Drug Use Lives In: Home All Other Systems: Reviewed and Negative (see hpi) Physical Exam General Appearance: No Apparent Distress, Normal HEENT: Pharynx Normal Neck: Full Range of Motion, Non-Tender Respiratory: Lungs Clear, No Respiratory Distress, Normal Breath Sounds Cardiovascular: No Murmur, Normal Peripheral Pulses, Regular Rate/Rhythm Breast Exam: Deferred Gastrointestinal: Non Tender, Soft Genitalia: Deferred Pelvic: Deferred Rectal: Deferred Extremities: Normal capillary refill, Normal range of motion, No pedal edema Musculoskeletal : Location: Right Extremity Location: Ankle (Noted moderate edema and ecchymosis medial ankle malleolus aspect with moderate tenderness no noted crepitus strength sensory motion intact positive pedal pulse no noted angulation) Apperance: Normal Neurologic: Alert, No Motor Deficits, Normal Affect, Normal Mood, No Sensory Deficits Cerebellar Function: Normal Reflexes: NOT DONE Skin: Dry, Normal Color, Warm Lymphatic: No Adenopathy Was a procedure done? Was a procedure done?: No Back Pain Differential Dx Differential Diagnosis: Fracture, Musculoskeletal Pain X-Ray, Labs, Meds, VS Vital Signs Date Time Temp Pulse Resp B/P (MAP) Pulse Ox O2 Delivery O2 Flow Rate FiO2 07/20/25 19:39 97.0 76 16 128/77 99 97.0 X-Ray, Labs, Meds, VS Comment QUESTIONABLE FRACTURE PATIENT IS TENDER AT THE MEDIAL MALLEOLUS SITE OF CONCERN PER X-RAY. WE WILL PLACE PATIENT IN AN ANKLE SPLINT AND CRUTCHES PROVIDED. ADVISED TO FOLLOW UP WITH HIS PCP FOR ORTHO REFERRAL REPEAT X-RAY WITHIN SEVEN DAYS. ADVISED ON RICE. SCRIPT TRIAL OF ANTI-INFLAMMATORY. ADVISED ON ER RETURN PRECAUTIONS PATIENT INDICATES UNDERSTANDING AGREES WITH DISCHARGE PLAN OF CARE. Images Reviewed?: Images reviewed and evaluated by me Time of 1ST Reevaluation: 19:43 Reevaluation 1ST: Unchanged Time of 2ND Reevaluation: 22:08 Reevaluation 2ND: Improved Patient Education/Counseling: Diagnosis, Treatment, Need For Follow Up Family Education/Counseling: No Family Present SEPSIS Sepsis Screen Date sepsis recognized/suspect: Jul 20, 2025 Time Sepsis recognized/suspect: 1939 Recent Procedure: No On Antibiotic Therapy: No Respiratory Rate >20: No Heart Rate >90: No Temp<36 C (96.8 F) or >38.3 C: No SBP <90 or MAP <65 mmHG: No New Acute Mental Status Change: No Is the patient on CPAP, BIPAP,: No Physician Orders R Ankle 3 View (07/20/25 19:44) Splints (07/20/25 ) Dme: Crutches (07/20/25 22:04) Vital Signs Date Time Temp Pulse Resp B/P (MAP) Pulse Ox O2 Delivery O2 Flow Rate FiO2 07/20/25 19:39 97.0 76 16 128/77 99 97.0 Departure 1 Departure Time of Disposition: 22:07 Impression: Primary Impression: Ankle fracture, right Qualified Codes: S82.891A - Other fracture of right lower leg, initial encounter for closed fracture Disposition: 01 HOME / SELF CARE / HOMELESS Condition: Stable e-Prescriptions Ibuprofen (Ibuprofen) 800 Mg Tab 800 MG PO Q8HP PRN for 7 Days, #21 TAB Prov: KATRIN GRACE 07/20/25 Discharged With: Self Critical Care Note Critical Care Time?: No Stability Stability form required: KATRIN Huffman Jul 20, 2025 20:09
--- NOTE | 2025-07-20 21:10 | DVH ---
EXAM: XY R ANKLE 3 VIEW INDICATION: Injury/pain/swelling TECHNIQUE: 3 views of the right ankle COMPARISON: RSHD2 on DOS: 01/20/22 FINDINGS/IMPRESSION: Mild medial malleolar soft tissue swelling. Small 1 mm ossicle of the inferior aspect of the lateral malleolus likely compatible with a prior anterior talofibular ligament injury. Imaging finding is indeterminate for acuity correlate with clinical exam. Small osseous lucency of the distal tibial epiphysis of indeterminate etiology and may represent sequelae of prior hardware placement. Sequelae of prior syndesmotic tight rope placement suspected.
[2025-07-20] MEDS ORDERED: IBUP-1456 PO (22:08)
[2025-07-20] MEDS: HYDROcodone-ACET 10/325MG TAB PO ONE (22:29)
[2025-07-20 22:31] VITALS: BP 131/77; PULSE 67; RESP 22; TEMP 98.1; O2SAT 98
== END 2025-07-20 22:32 | disposition home or self-care (01) ==
LOC: ER 19:36
DX: S82.891A Other fracture of right lower leg, initial encounter for closed fracture (principal); F10.90 Alcohol use, unspecified, uncomplicated; I10 Essential (primary) hypertension; E11.9 Type 2 diabetes mellitus without complications; J45.909 Unspecified asthma, uncomplicated; Z79.899 Other long term (current) drug therapy; Z90.49 Acquired absence of other specified parts of digestive tract; Z87.11 Personal history of peptic ulcer disease; Z79.624 Long term (current) use of inhibitors of nucleotide synthesis; Z79.84 Long term (current) use of oral hypoglycemic drugs; Z79.52 Long term (current) use of systemic steroids; W20.8XXA Other cause of strike by thrown, projected or falling object, initial encounter; Y93.89 Activity, other specified; Y92.89 Other specified places as the place of occurrence of the external cause; Y99.8 Other external cause status; Y90.9 Presence of alcohol in blood, level not specified
CPT/HCPCS: 29515; 73610